=== PATIENT | female | born 1955 | race Caucasian/White ===

== ENCOUNTER 2022-12-06 16:57 | Emergency (ER) | payer MEDICARE, OTHER ==
[2022-12-06 17:09] VITALS: BP 133/83
--- NOTE | 2022-12-06 17:11 | ED Physician Documentation ---
History of Present Illness - Stated complaint Stated Complaint: MED REFILL - Chief complaint Chief Complaint: General - History obtained from History obtained from: Patient - History of Present Illness Timing: Today (she is here visiting for 2 weeks and unfortunately only packed 1 week of her Pristiq medication (she thought she had enough for the whole trip). She states she went until afternoon for it today and was feeling sluggish and tired until taking it couple of hours ago. Made her reluctant to go week.) PD PAST MEDICAL HISTORY - Past Surgical History Past Surgical History: No - Present Medications Home Medications: Ambulatory Orders Medication Instructions Recorded Confirmed Desvenlafaxine Succinate [Pristiq] 100 mg PO DAILY 5 Days #5 tab 12/06/22 - Allergies Allergies/Adverse Reactions: Allergies Allergy/AdvReac Type Severity Reaction Status Date / Time No Known Drug Allergies Allergy Verified 12/06/22 17:08 PD ED PE NORMAL - Vitals Vital signs reviewed: Yes - General General: Alert and oriented X 3, No acute distress, Well developed/nourished - Derm Derm: Normal color, Warm and dry - Neuro Neuro: Alert and oriented X 3, No motor deficit, Normal speech Results - Vitals Vitals: Vital Signs - 24 hr 12/06/22 17:03 Temperature 36.5 C Heart Rate 65 Respiratory 17 Rate Blood Pressure 133/83 H O2 Saturation 98 Oxygen O2 Source Room air PD Medical Decision Making - ED course Complexity details: considered differential (she does not want to miss doses of her usual med. [place] enough to give script fo 5 days of her med.), d/w patient Departure - Departure Disposition: 01 Home, Self Care Clinical Impression: Has run out of medications Condition: Stable Record reviewed to determine appropriate education?: Yes Prescriptions: Desvenlafaxine Succinate [Pristiq] 100 mg PO DAILY 5 Days #5 tab Comments: I sent a prescription for 5 tablets of your desvenlafaxine to [facility] in [place]. They do close I believe at 6:00 today so may not be able to get it this evening. You did have today's dose already so I would imagine the prescription will be available in the morning for continuing. Discharge Date/Time: 12/06/22 17:32
== END 2022-12-06 17:32 | disposition home or self-care (01) ==
LOC: ED 16:57
DX: Z76.0 Encounter for issue of repeat prescription (principal)
CPT/HCPCS: 99281; 99282